=== PATIENT | male | born 1985 | race Two or more races ===

== ENCOUNTER 2019-08-14 19:30 | Emergency (ER) | payer MEDICAID ==
[~2019-08-14] VITALS: Ht 167.6 cm; Wt 61.0 kg
[2019-08-14] MEDS ORDERED: TETRACAINE 0.5% OPHTH DROPS 4ML RIGHTEYE ONE (20:30)
[2019-08-14] MEDS ORDERED: FLUORESCEIN SODIUM 1MG/STRIP RIGHTEYE ONE (20:30)
[2019-08-14] MEDS ORDERED: HYDROCODONE/ACETAMINOPHEN 5/325MG TABLET PO ONE (20:30)
[2019-08-14 22:30] VITALS: BP 129/58
== END 2019-08-14 22:37 | disposition home or self-care (01) ==
LOC: ER 19:30
DX: S02.2XXA Fracture of nasal bones, initial encounter for closed fracture (principal); S16.1XXA Strain of muscle, fascia and tendon at neck level, initial encounter; S05.01XA Injury of conjunctiva and corneal abrasion without foreign body, right eye, initial encounter; Y08.89XA Assault by other specified means, initial encounter; Y93.89 Activity, other specified; Y92.89 Other specified places as the place of occurrence of the external cause; Y99.8 Other external cause status
CPT/HCPCS: 70486; 99285

== ENCOUNTER 2019-11-06 12:09 | Emergency (ER) | payer MEDICAID ==
[~2019-11-06] VITALS: Ht 167.6 cm; Wt 61.0 kg
[2019-11-06 17:12] VITALS: BP 119/83
== END 2019-11-06 17:13 | disposition home or self-care (01) ==
LOC: ER 13:18
DX: J02.9 Acute pharyngitis, unspecified (principal)
CPT/HCPCS: 87070; 87430; 93005; 99284; C9803; U0003